=== PATIENT | male | born 1935 | race Caucasian/White ===

== ENCOUNTER 2017-11-26 22:03 | Inpatient (IN) ==
--- NOTE | 2017-11-27 03:51 | Internal Med History&Physical ---
Date of Encounter: 11/27/17 Time of Encounter: 03:49 Internal Medicine - H&P: HPI Chief complaint: CVA Admitted From: Hospital to Hospital Transfer Plans for Post Hospital Care: Transfer Long-Term Facility History of present illness: Mr. 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 due to CVA- cerebral infarction. Per medical records his last known well was 10 AM, and his found the patient on the couch with slurred speech and right upper extremity weakness. He was then taken to 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 He was not a candidate for TPA due to last known well was unknown and outside timeframe for administration. Upon my examination, the patient was alert and oriented x3 in no acute distress with right sided facial droop and slurred speech. No family at bedside. He stated that he was in the garden yesterday when he became lightheaded and his right leg became weak and he fell. He then crawled into his home. His found him on the couch with the right sided weakness and slurred speech. He denies fever, chills, recent illness, falls, dyspnea, chest pain, cough, nausea , vomiting, dysuria, melena. He has never had a stroke, anticoagulation, stents , PE/DVT. He is lifetime non-smoker, occasional alcohol, no drug use. He PCP is Dr. Devlin. He is a full code. At [place], urinalysis and blood cultures were taken. Lactic acid 2.15, troponin<0.03, WBC 7.4, hemoglobin 16, platelets 156, sodium 142, potassium 3.9, anion gap 9, glucose 184, creatinine 1.7, magnesium 1.9. EKG HR 63, normal sinus rhythm, left axis deviation, no ST or T wave changes. No indications of ischemia. Chest x-ray demonstrated no acute cardiopulmonary process. Past Med Surg Social Fam HX - Past Medical History Attestation: Yes The following information was validated with the patient. Source: patient Medical history: hyperlipidemia, hypertension Additional medical history: BPH Psychiatric history: no psych history - Past Surgical History Surgical History: herniorrhaphy - Social History Smoking Status: Never smoker Smokeless Tobacco Status: No Alcohol use: occasionally Drug use: none Internal Medicine - H&P: Meds Losartan/HCTZ [Hyzaar 50-12.5 Tablet] 25 - 100 mg PO DAILY 11/27/17 [History] Metoprolol XL (24 HR) Succ 100 mg PO HS 11/27/17 [History] Tamsulosin 0.4 mg PO HS 11/27/17 [History] amLODIPine 10 mg PO DAILY 11/27/17 [History] 3 Allergy/AdvReac Type Severity Reaction Status Date / Time No Known Drug Allergies Allergy See Verified 11/27/17 01:22 Comments All Systems PM: A 10-system review of systems was performed and is negative for pertinent findings except as documented above in the HPI. 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), no change in vision - Cardiovascular Cardiovascular ROS IM: lightheadedness, no chest pain, no diaphoresis, no palpitations, no syncope - Respiratory Respiratory: no cough, no dyspnea, no wheezing - Gastrointestinal Gastrointestinal: no abdominal pain, no hematochezia, no melena, no nausea, no vomiting - Genitourinary Genitourinary ROS male: no dysuria, no hematuria - Integumentary Integumentary IM: no erythema, no new lesions - Neurological Neurological ROS: abnormal gait, abnormal speech, dizziness, weakness (right upper and lower extremity), no headache(s), no loss of vision, no numbness, no paresthesias, no tingling - Hematologic/Lymphatic Hematologic/Lymphatic: no easy bleeding - Constitutional Vitals: Temp Pulse Resp BP Pulse Ox 98.1 F 59 17 168/97 97 11/27/17 00:13 11/27/17 00:13 11/27/17 00:13 11/27/17 00:13 11/27/17 00:13 General appearance: Present: A&O X 3, pleasant, no acute distress, answers questions appropriately - Head Head exam: Present: atraumatic, normocephalic - Eye Eye exam: Present: normal appearance, conjuntiva pink. Absent: nystagmus - Respiratory Respiratory exam: Present: CTAB. Absent: rales, rhonchi, wheezes - Cardiovascular Cardiovascular exam: Present: RRR, +S1, +S2 - GI/Abdominal GI/Abdominal exam: Present: normal bowel sounds, soft. Absent: distended, tenderness - Extremities Exam Extremities exam: Present: normal inspection. Absent: calf tenderness, pedal edema - Back Exam Back exam: Absent: rash noted - Neurological Exam Neurological exam: Present: facial droop (right side), speech deficit (yes) - Psychiatric Psychiatric exam: Present: normal affect, normal mood - Skin Skin exam: Present: dry, intact Internal Med - H&P Results - Labs CBC & Chem 7: 11/27/17 04:18 11/27/17 04:18 - Assessment and plan (1) CVA (cerebral vascular accident) Current Visit: Yes Status: Acute Assessment and plan: Most likely ischemic cerebral infarction, head CT negative for hemorrhage. Patient is a transfer from [facility]. Last known well 10am. Right upper and lower extremity weakness, right sided facial droop, and slurred speech. 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 -neuro exam: alert and oriented x3, right sided facial droop, slurred speech, 5/ 5 strength, sensation intact, no nystagmus -PMH: HTN, BPH, non smoker Plan -MRI head ordered -consult neurology in am -order PT/OT -lipid panel pending -NIHS -speech consult -NPO Qualifiers: Qualified Code(s): I63.9 - Cerebral infarction, unspecified (2) Elevated lactic acid level Current Visit: Yes Status: Acute Assessment and plan: elevated lactic acid secondary to fall most likely lactic acid 2.15 afebrile, WBC WNL -will repeat (3) Fall Current Visit: Yes Status: Acute Assessment and plan: Concern rhabdomyolysis. Patient reported fall without hitting head or losing consciousness. head CT demonstrated no acute intracranial abnormality -creatinine 1.7 -check renal function -check creatinine kinase -IVF -monitor I&O Qualifiers: Qualified Code(s): W19.XXXA - Unspecified fall, initial encounter (4) Hypertension Current Visit: Yes Status: Acute Assessment and plan: History of hypertension taking metoprolol, amlodipine, losartan/hydrocothiazide. -Holding blood pressure medications due to ischemic stroke Qualifiers: Hypertension type: essential hypertension Qualified Code(s): I10 - Essential (primary) hypertension (5) DVT prophylaxis Current Visit: Yes Status: Acute Assessment and plan: SCD - Time Spent With Patient Total time spent is greater than 50% in coordination of care (as documented) at patient's floor/unit and/or counseling patient:
[2017-11-27] MEDS ORDERED: Naloxone 0.4 MG/ML INJ IVP PRN (04:37)
[2017-11-27 04:38] LABS: Basophils % 0.3 %; Eosinophils # 0.1 K/mcL (0.0-0.6); Eosinophils % 0.5 %; Hematocrit 42.5 % (37.5-50.1); Immature Granulocytes % 0.4 % (0-4); Lymphocytes # 1.4 K/mcL (0.6-4.6); Lymphocytes % 13.8 %; Mean Corpuscular HGB Conc 35.3 g/dL (31.6-35.5); Mean Corpuscular Hemoglobin 31.3 pg (28.0-33.3); Mean Corpuscular Volume 88.7 fL (83.0-100.0); Mean Platelet Volume 9.9 fL (9.4-12.4); Monocytes # 0.7 K/mcL (0.0-1.3); Monocytes % 6.7 %; Neutrophils # 7.8 K/mcL (1.6-8.9); Platelet Count 139 K/mcL (140-400); Red Blood Count 4.79 M/mcL (4.19-5.50); Red Cell Distribution Width 12.5 % (11.5-14.5); Segmented Neutrophils % 78.3 %
[2017-11-27 04:46] LABS: Prothrombin Time 11.5 Seconds (9.4-12.1)
[2017-11-27 04:56] LABS: Chol/HDL Ratio 4.8 (0-4.9)
[2017-11-27 04:57] LABS: Calcium 9.1 mg/dL (8.6-10.3); Potassium 3.7 mEq/L (3.5-5.1)
[2017-11-27] MEDS ORDERED: 0.9 % Sodium Chloride 1,000 ML IVC SCH (05:45)
--- NOTE | 2017-11-27 09:30 | Event Note ---
<Raheel Lopez A - Last Filed: 11/27/17 15:46> Date of Encounter: 11/27/17 Time of Encounter: 10:55 Mr. Willett is an 82 y/o male with hx of HTN, HLD, and BPH, who was admitted today for CVA with right sided facial droop and weakness. Pt stated he fell around 11 AM yesterday out in the garden and crawled inside. His found him inside on the couch around 19:00 last night and noted slurred speech and facial droop. During the encounter with this provider, the pt was resting comfortable in bed. Stated his speech has improved from earlier and has no new complaints. Denies any headache, dizziness, lightheadedness, diplopia, numbness, tingling, weakness , chest pain, SOB, abdominal pain, nausea, vomiting, diarrhea, constipation, difficulty urinating, or painful urination. Physical exam: Head: normocephalic, atraumatic Eyes: pupils constricted, PERRL, unable to gaze laterally to the left, no visual field deficit. conjunctiva pink, sclera anicteric Neck: supple, trachea midline Lungs: CTA bilaterally. non-labored breathing. no wheezes, rales, or rhonchi noted Heart: RRR, +S1, +S2. no murmurs, clicks, or rubs noted GI: abdomen soft, non-tender, non-distended. normoactive bowel sounds Extremities: warm, strength 5/5 in all 4 extremities, no pedal edema. no cyanosis Neuro: A&Ox3. slight slurring of speech. no pronator drift. no facial drooping. DTRs 2/4 in all extremities. sensation intact Skin: warm, dry, intact A/P: CVA -CT revealed no abnormality -MRI revealed acute left esme infarct -Start 81mg ASA, 40mg atorvastatin, and plavix 75mg qd -Echocardiogram -US carotids -PT/OT eval -Speech therapy eval HTN -high of -continue home meds -continue to monitor closely HLD -atorvastatin 40mg qd as above BPH -continue home Flomax <Mega Arroyo - Last Filed: 11/27/17 17:19> Date of Encounter: 11/27/17 I examined this patient and my medical decision-making was reviewed with the Resident Physician Dr. Lopez. I agree with the documented findings, disposition and treatment plan as described except to the extent set forth below. Mr. Willett is a 82 year old male with a history of hypertension, hyperlipedemia , and partial right eye blindness. Presented to ED at [facility] yesterday. He noted right side lower extremity weakness and falling beginning about 1000 am yesterday, while working outside. He did c/o numbness and weakness Rt side of body which resolved today. Gen: A, A< O x3 Chest: CTA Heart: S1S2+ RRR Neuro : No focal deficit A/P 1. Acute CVA- Left pontine infract ASA + Plavix Statin PT / OT / Speech eval 2 D echo and Carotid doppler - P
[2017-11-27] MEDS: Aspirin 81 MG TAB.CHEW PO SCH (09:53)
--- NOTE | 2017-11-27 10:24 | Neurology - Consult Note ---
<Chris Arizmendi R - Last Filed: 11/27/17 10:57> Date of Encounter: 11/27/17 Time of Encounter: 10:17 Assessment and Plan (1) CVA (cerebral vascular accident) Current Visit: Yes Status: Acute History and exam consistent with CVA. Head CT did not show acute abnormality. Head MRI reveals acute left esme infarct. Will need echo, and carotid US for further evaluation. Start Plavix 75 mg p.o. daily and continue statin. May discontinue aspirin at discharge. Recommend evaluation by physical therapy. History of Present Illness Chief complaint: Right side weakness, slurred speak HPI: Mr. Willett is a 82 year old male with a history of hypertension, hyperlipedemia , and partial right eye blindness. Presented to ED at [facility] yesterday. He noted right side lower extremity weakness and falling beginning about 1000 am yesterday, while working outside. Patient was able to crawl inside, where his found him. She noted facial droop, and slurred speech. Stroke neurologist was consulted but patient was outside the tPA window. Head CT negative for acute abnormality. Initial exam noted patient to be alert and oriented, right arm hand numbness, and slurred speech. At baseline patient is able to care for self, ambulate without assistance, and perform household tasks. 1 month ago patient experienced a similar episode of slurred speech, which self resolved after 3 hours, did not seek medical care. Past Med Surg Social Fam HX - Past Medical History Medical history: hyperlipidemia, hypertension Additional medical history: BPH Psychiatric history: no psych history - Past Surgical History Surgical History: herniorrhaphy - Social History Smoking Status: Never smoker Smokeless Tobacco Status: No Alcohol use: occasionally Drug use: none Medications and Allergies Amlodipine Besylate 10 mg PO DAILY 11/27/17 [History] Losartan/HCTZ [Hyzaar 50-12.5 Tablet] 25 - 100 mg PO DAILY 11/27/17 [History] Metoprolol Succinate [Toprol Xl] 100 mg PO DAILY 11/27/17 [History] Tamsulosin [Flomax] 0.4 mg PO DAILY 11/27/17 [History] 3 Allergy/AdvReac Type Severity Reaction Status Date / Time No Known Drug Allergies Allergy See Verified 11/27/17 01:22 Comments All Systems: The remainder of the systems were reviewed and are negative Review of Systems: Right lower extremity weakness, resolved right hand numbness. Physical Examination - Vital Signs Vital Signs: Initial Vital Signs Temp Pulse Resp BP 98.1 F 59 17 168/97 11/27/17 00:11 11/27/17 00:11 11/27/17 00:11 11/27/17 00:11 - Exam Exam: Mental status: Patient is awake in bed, alert and oriented to person, place, and time. Speech is noticeably slurred, but understandable. Good fund of knowledge for recent and remote events. Cranial Nerves: Pupils are equal, round, and reactive to light. Right visual field deficit, with markedly diminished central and peripheral vision. EOM intact. Diminished sensory CN V. Right facial droop, CN VII. Bilateral hearing loss, VIII. symmetrically elevated palate and shoulder shrug IX,X, XI. Left deviated tongue XII. Upper extremity motor: Normal bulk and tone. 4/5 right side compared to 5/5 left strength in deltoid, biceps, triceps, finger extensors and abductors. Lower extremity motor: Normal bulk and tone. 4/5 right side compared to 5/5 left side strength in hip flexors, quadriceps, hamstring, plantar flexors and extensors Sensory: Sensation to touch and pain intact. Reflexes: down going plantar reflex, 2+ biceps, 2+ triceps, 2+ patellar, 2+ achilles Cerebellar: able to perform finger to nose exam with mild bilateral dysmetria, right worse than left. performed rapid alternating movements well. Results - Laboratory Findings CBC and BMP: 11/27/17 04:18 11/27/17 04:18 Abnormal lab findings: Abnormal lab results Plt Count 139 K/mcL (140-400) L 11/27/17 04:18 Chloride 108 mEq/L (98-107) H 11/27/17 04:18 BUN 26 mg/dL (8-23) H 11/27/17 04:18 Creatinine 1.48 mg/dL (0.70-1.30) H 11/27/17 04:18 Est GFR ( Amer) 55 (> 60) L 11/27/17 04:18 Est GFR (Non-Af Amer) 46 (> 60) L 11/27/17 04:18 Glucose 146 mg/dL (70-105) H 11/27/17 04:18 Triglycerides 170 mg/dL (< 150) H 11/27/17 04:18 LDL Cholesterol, Calc 106 mg/dL (0-99) H 11/27/17 04:18 VLDL Cholesterol, Calc 34 mg/dL (< 31) H 11/27/17 04:18 HDL Cholesterol 37 mg/dL (40-59) L 11/27/17 04:18 Consult Discharge Plan - Plan Referrals: NONE,PCP [Primary Care Provider] - <Crow Quintana I - Last Filed: 11/27/17 11:14> Date of Encounter: 11/27/17 Assessment and Plan (1) CVA (cerebral vascular accident) Current Visit: Yes Status: Acute Pt was seen and examined, my medical decision was reviewed with the Resident Physician, I agree with the documented findings, disposition and treatment plas as described except to the extent set forth below This is an 82 years old male who was been admitted with this slurred speech and some weakness predominantly in the right lower extremities. Baseline seem like he did have some slurred speech but seems to be worse than his baseline. He also has a history of decreased vision in his both eyes more on the right than on the left. On examination he is alert awake and oriented 3 able to follow simple commands he did have some slurred speech but naming and repetition seems to be intact. He did a decreased vision in his right eye and also decrease in the left but not much able to see from the right. Motor examination he is 4+ in both upper extremities right lower extremity he is 4 as compared to the left reflexes are hypoactive throughout downgoing toes bilaterally. CT scan of the head is negative for any acute infarct. He just had an MRI of the brain which shows a right pontine acute infarct. Impression: Acute pontine infarct Plan: Following's are my recommendations. For secondary stroke prevention patient should continue daily antiplatelet medication and vascular risk factor modification. Order the following test, *MRI of the brain without contrast. already completed, *Antiplatelet medication, aspirin 81 mg daily. with PLAVIX 75 mg daily *Consult physical therapy/ rehabilitation * To reduce the risk of future ischemic stroke patient need continued vascular risk modification, following's are the recommended guidelines LDL goal less than 70 MG per deciliter sugar management Blood pressure control should achieve less than 130/80 mmHg BP management should aim to achieve long-term control in a reasonable amount of time. weight management goal for BMI is 18.5 -24.9 Kg/m2 Alcohol : No more than 2 drinks per day for men Patient to continue to follow-up with his primary care physician for continued outpatient risk factor management and modification. PT eval for gait and balance Crow Quintana MD Qualifiers: CVA mechanism: unspecified Qualified Code(s): I63.9 - Cerebral infarction, unspecified History of Present Illness HPI: Mr. Willett is a 82 year old male All Systems: The remainder of the systems were reviewed and are negative Physical Examination - Vital Signs Vital Signs: Initial Vital Signs Temp Pulse Resp BP 98.1 F 59 17 168/97 11/27/17 00:11 11/27/17 00:11 11/27/17 00:11 11/27/17 00:11 Results - Laboratory Findings CBC and BMP: 11/27/17 04:18 11/27/17 04:18 Abnormal lab findings: Abnormal lab results Plt Count 139 K/mcL (140-400) L 11/27/17 04:18 Chloride 108 mEq/L (98-107) H 11/27/17 04:18 BUN 26 mg/dL (8-23) H 11/27/17 04:18 Creatinine 1.48 mg/dL (0.70-1.30) H 11/27/17 04:18 Est GFR ( Amer) 55 (> 60) L 11/27/17 04:18 Est GFR (Non-Af Amer) 46 (> 60) L 11/27/17 04:18 Glucose 146 mg/dL (70-105) H 11/27/17 04:18 Triglycerides 170 mg/dL (< 150) H 11/27/17 04:18 LDL Cholesterol, Calc 106 mg/dL (0-99) H 11/27/17 04:18 VLDL Cholesterol, Calc 34 mg/dL (< 31) H 11/27/17 04:18 HDL Cholesterol 37 mg/dL (40-59) L 11/27/17 04:18
[2017-11-28 05:08] LABS: Calcium 8.6 mg/dL (8.6-10.3); Potassium 3.9 mEq/L (3.5-5.1)
[2017-11-28] MEDS: Aspirin 81 MG TAB.CHEW PO SCH (11:28)
--- NOTE | 2017-11-28 14:32 | Internal Med Progress Note ---
<Mojgan Mccarthy - Last Filed: 11/28/17 14:29> Date of Encounter: 11/28/17 Time of Encounter: 02:30 - Assessment and plan (1) CVA (cerebral vascular accident) Current Visit: Yes Status: Acute Assessment and plan: 11/27/17: Most likely ischemic cerebral infarction, head CT negative for hemorrhage. Patient is a transfer from [facility]. Last known well 10am o 05/04. Right upper and lower extremity weakness, right sided facial droop, and slurred speech at presentation. 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 -neuro exam: alert and oriented x3, right sided facial droop, slurred speech, 5/ 5 strength, sensation intact, no nystagmus -PMH: HTN, BPH, non smoker 11/28/17: no acute distress, awake and alert with congruent thought content. 11/28/17 Plan -MRI: reveals acute left esme infarct -neurology consulted -neurology recommends controlling hypertension at a reasonable time -Started 50 mg succinate -PT/OT consulted -lipid panel pending -speech consult -Carotid ultrasound: Bilateral carotid nonstenotic plaque -Echo: preserved EF, normal chamber size. No aortic regurgitation, no mitral regurgitation, trace tricuspid regurgitation. -Discharge to F Qualifiers: CVA mechanism: unspecified Qualified Code(s): I63.9 - Cerebral infarction, unspecified (2) Hypertension Current Visit: Yes Status: Acute Assessment and plan: History of hypertension at home takes metoprolol, amlodipine, losartan/ hydrocothiazide. -Held blood pressure medications at admission due to ischemic stroke -Started 50 mg metoprolol succinate as the blood pressure was 177/102 this morning Qualifiers: Hypertension type: essential hypertension Qualified Code(s): I10 - Essential (primary) hypertension (3) Fall Current Visit: Yes Status: Acute Assessment and plan: Concern rhabdomyolysis. Patient reported fall without hitting head or losing consciousness. head CT demonstrated no acute infarct of left esme. MRI shows acute -creatinine 1.7 at admission, today 1.51. -Creatinine kinase 76 at admission -IVF at admission -monitor I&O, eating and drinking with good output Qualifiers: Qualified Code(s): W19.XXXA - Unspecified fall, initial encounter (4) JO (acute kidney injury) Current Visit: Yes Status: Acute Assessment and plan: Suspected to be prenal due to dehydration. Unknown if he has history of CKD due to long standing hypertension. His creatinine is 1.51 this morning. Continue oral hydration. Avoid nephrotoxins (5) DVT prophylaxis Current Visit: Yes Status: Acute Assessment and plan: SCDs (6) Hyperlipidemia Current Visit: Yes Status: Chronic Assessment and plan: History of hyperlipidemia. His LDL was 106 and triglyceride was 170 with low HDL -On lipitor -Continue home medications -Should be on a low fat and low salt diet Qualifiers: Hyperlipidemia type: unspecified Qualified Code(s): E78.5 - Hyperlipidemia , unspecified - Time Spent With Patient Total time spent is greater than 50% in coordination of care (as documented) at patient's floor/unit and/or counseling patient: - Subjective Interval history: Mr. Willett was seen at bedside this morning. He was transferred from [facility] yesterday due to a CVA. Because of the unknown time of the last known well he was not a TPA candidate. He is comfortable in bed and has no complaints this morning. He is awake, alert and oriented x3. He has fluent speech with congruent thought process. He is using the bathroom in his room with ease. He states his gait is intact and denies any fever, chills, paresthesia, headache, blurry vision, nausea, vomiting, chest pain or shortness of breath. - Constitutional Vitals: Temp Pulse Resp BP Pulse Ox 97.5 F L 92 20 177/102 94 11/28/17 11:45 11/28/17 13:37 11/28/17 13:37 11/28/17 13:37 11/28/17 11:45 General appearance: Present: A&O X 3, pleasant, no acute distress, answers questions appropriately - Head Head exam: Present: atraumatic, normocephalic - Eye Eye exam: Present: EOMI, normal appearance, sclera anicteric - ENT ENT exam: Present: mucous membranes moist - Neck Neck exam general surgery: Present: full ROM, trachea midline - Respiratory Respiratory exam: Present: CTAB. Absent: rales, stridor, wheezes - Cardiovascular Cardiovascular exam: Present: RRR. Absent: clicks, gallop, JVD - GI/Abdominal GI/Abdominal exam: Present: normal bowel sounds, soft. Absent: distended, firm , guarding, rigid - Extremities Exam Extremities exam: Present: full ROM, warm. Absent: calf tenderness, pedal edema , tenderness - Neurological Exam Neurological exam: Present: alert, altered, oriented X3. Absent: no focal deficits, speech deficit - Psychiatric Psychiatric exam: Present: normal affect, normal mood. Absent: anxious - Skin Skin exam: Present: dry, intact, warm. Absent: rash Internal Medicine: Result - Labs CBC & Chem 7: 11/27/17 04:18 11/28/17 04:24 Labs: BMP 11/28/17 04:24 Sodium 138 Potassium 3.9 Chloride 108 H Carbon Dioxide 23 BUN 30 H Creatinine 1.51 H Glucose 152 H Calcium 8.6 - ABG Interpretation ABG results: PT/INR, D-dimer PT 11.5 Seconds (9.4-12.1) 11/27/17 04:18 - Impressions Impressions Echocardiogram 11/27/17 11:48 Impressions: LVEF 65%. Normal LV chamber size, wall thickness and function. Mild left ventricular diastolic dysfunction. Normal right ventricular structure and function. No evidence of a PFO with agitated saline contrast. No evidence of pulmonary hypertension. No significant valvular dysfunction. Left Ventricular Wall Motion: Rest Echo Findings All wall segments showed normal motion. Findings: Study Quality * Technically adequate exam. ECG Findings * Normal sinus rhythm. Left Ventricle * LVEF 65%. * Normal LV chamber size, wall thickness and function. * Mild left ventricular diastolic dysfunction. Right Ventricle * Normal right ventricular structure and function. Left Atrium * Normal left atrial size. Right Atrium * Normal right atrial size. Interatrial Septum * No evidence of a PFO with agitated saline contrast. Aortic Valve * Trileaflet aortic valve with normal function. * No aortic regurgitation. * No aortic stenosis. Mitral Valve * Normal mitral valve structure and function. * No mitral regurgitation. * No mitral stenosis. Tricuspid Valve * Normal tricuspid valve structure and function. * Trace tricuspid regurgitation. * No evidence of pulmonary hypertension. Pulmonic Valve * Normal pulmonic valve structure and function. * No pulmonic regurgitation. Aorta * Normally sized aortic root. Pericardium * The pericardium appears normal. IVC * Normal IVC dimensions and inspiratory collapse. Pulmonary Artery * Normal visualized portions of the main pulmonary artery. - VTE Documentation of Mechanical Device: Intermittent pneumatic compression device Consult Discharge Plan - Plan Referrals: [place],Luis Antonio E, MD [Non-Partnered Physician] - (office is closed so please call and make a follow up appointment thursday ) <Mega Arroyo - Last Filed: 11/28/17 15:52> Date of Encounter: 11/28/17 - Assessment and plan (1) CVA (cerebral vascular accident) Current Visit: Yes Status: Acute Qualifiers: CVA mechanism: unspecified Qualified Code(s): I63.9 - Cerebral infarction, unspecified (2) Hypertension Current Visit: Yes Status: Acute Qualifiers: Hypertension type: essential hypertension Qualified Code(s): I10 - Essential (primary) hypertension (3) DVT prophylaxis Current Visit: Yes Status: Acute (4) Fall Current Visit: Yes Status: Acute Qualifiers: Qualified Code(s): W19.XXXA - Unspecified fall, initial encounter (5) JO (acute kidney injury) Current Visit: Yes Status: Acute (6) Hyperlipidemia Current Visit: Yes Status: Chronic Qualifiers: Hyperlipidemia type: unspecified Qualified Code(s): E78.5 - Hyperlipidemia , unspecified - Time Spent With Patient Total time spent is greater than 50% in coordination of care (as documented) at patient's floor/unit and/or counseling patient: - Constitutional Vitals: Temp Pulse Resp BP Pulse Ox 97.7 F 89 20 169/103 90 11/28/17 15:18 11/28/17 15:18 11/28/17 13:37 11/28/17 15:18 11/28/17 15:18 Internal Medicine: Result - Labs CBC & Chem 7: 11/27/17 04:18 11/28/17 04:24 Labs: BMP 11/28/17 04:24 Sodium 138 Potassium 3.9 Chloride 108 H Carbon Dioxide 23 BUN 30 H Creatinine 1.51 H Glucose 152 H Calcium 8.6 - ABG Interpretation ABG results: PT/INR, D-dimer PT 11.5 Seconds (9.4-12.1) 11/27/17 04:18 - Impressions Impressions Echocardiogram 11/27/17 11:48 Impressions: LVEF 65%. Normal LV chamber size, wall thickness and function. Mild left ventricular diastolic dysfunction. Normal right ventricular structure and function. No evidence of a PFO with agitated saline contrast. No evidence of pulmonary hypertension. No significant valvular dysfunction. Left Ventricular Wall Motion: Rest Echo Findings All wall segments showed normal motion. Findings: Study Quality * Technically adequate exam. ECG Findings * Normal sinus rhythm. Left Ventricle * LVEF 65%. * Normal LV chamber size, wall thickness and function. * Mild left ventricular diastolic dysfunction. Right Ventricle * Normal right ventricular structure and function. Left Atrium * Normal left atrial size. Right Atrium * Normal right atrial size. Interatrial Septum * No evidence of a PFO with agitated saline contrast. Aortic Valve * Trileaflet aortic valve with normal function. * No aortic regurgitation. * No aortic stenosis. Mitral Valve * Normal mitral valve structure and function. * No mitral regurgitation. * No mitral stenosis. Tricuspid Valve * Normal tricuspid valve structure and function. * Trace tricuspid regurgitation. * No evidence of pulmonary hypertension. Pulmonic Valve * Normal pulmonic valve structure and function. * No pulmonic regurgitation. Aorta * Normally sized aortic root. Pericardium * The pericardium appears normal. IVC * Normal IVC dimensions and inspiratory collapse. Pulmonary Artery * Normal visualized portions of the main pulmonary artery. - Attending Attestation I examined this patient and my medical decision-making was reviewed with the Resident Physician Dr. Ulrich. I agree with the documented findings, disposition and treatment plan as described except to the extent set forth below. Mr. Willett is a 82 year old male with a history of hypertension, hyperlipedemia , and partial right eye blindness. Presented to ED at [facility] yesterday. He noted right side lower extremity weakness and falling beginning about 1000 am yesterday, while working outside. He did c/o numbness and weakness Rt side of body which resolved today. No events over night Gen: A, A O x3 Chest: CTA Heart: S1S2+ RRR Neuro : No focal deficit A/P 1. Acute CVA- Left pontine infract ASA + Plavix Statin PT / OT / Speech eval 2. uncontrolled HTN BP fairly elevated Resumed home meds goal for BP to keep @ 140/90 cont close monitoring Hydralazine PRN
--- NOTE | 2017-11-28 15:21 | Neurology Progress Note ---
Date of Encounter: 11/28/17 Time of Encounter: 15:19 Assessment and Plan (1) Brainstem infarct, acute Current Visit: Yes Status: Acute Patient has in fact experienced an acute infarction in the left esme he does have stroke risk factors which include hypertension and hyperlipidemia as well as age. His blood pressure has been significantly elevated throughout much of the admission. At this juncture I think it is safe to go ahead and normalize his blood pressure and maintain him on antiplatelet therapy as well as statins and antihypertensives. His deficits appear to be stable at this juncture he does not appear to need additional therapeutics after discharge. His echocardiogram and carotid Doppler studies were negative. I will reevaluate him at your request. Subjective Interval history: Chart was reviewed, patient was seen and examined independently. Dr. Quintana's consult from yesterday was reviewed as well. Mr. broderick is a very pleasant 82- year-old gentleman who was seen for neurologic follow-up today secondary to an acute right pontine infarct. He is currently awake and alert sitting up at bedside with multiple family members present. And he is in no acute distress. I did review the MRI scan of the brain personally which does reveal an acute infarct in the right esme. He does have stroke risk factors including uncontrolled hypertension. As his BP has been running fairly high since admission currently is 170/110. He is also found to have hyperlipidemia. Echocardiogram and carotid duplex Doppler studies were negative. Objective - Constitutional Vitals: Temp Pulse Resp BP Pulse Ox 97.5 F L 92 20 177/102 94 11/28/17 11:45 11/28/17 13:37 11/28/17 13:37 11/28/17 13:37 11/28/17 11:45 - Neurological Exam Sensorimotor examination: Present: intact Motor examination - right side: 5/5: deltoids, biceps, triceps, exhauster engineer, hip flexors, tibialis Anterior, quadriceps, toe extension (EHL), plantarflexion Motor examination - left side: 5/5: deltoids, biceps, triceps, hip flexors, exhauster engineer , quadriceps, tibialis Anterior, toe extension (EHL), plantarflexion Sensation intact: Present: intact Reflexes: Biceps: 1+, Triceps: 1+, Brachioradialis: 1+, Patella: 1+, Achilles: 1 + Mental Status Examination: Present: awake, alert, oriented to person, oriented to place, oriented to time, follows commands appropriately, answers questions appropriately, no agnosia, no aphasia, no aproxia Cranial nerve examination: Present: PERRL, EOMI, corneal reflexes brisk symmetrically, sensory to face intact, mastication intact, no dysarthria. Absent: visual caballero intact (Right central field deficit present.), no facial asymmetry is present (This is a very slight right facial droop present.) Cerebellar examination: Present: no dysmetria - VTE Documentation of Mechanical Device: Intermittent pneumatic compression device Results - Laboratory Findings CBC and BMP: 11/27/17 04:18 11/28/17 04:24 Abnormal lab findings: Abnormal lab results Plt Count 139 K/mcL (140-400) L 11/27/17 04:18 Chloride 108 mEq/L (98-107) H 11/28/17 04:24 BUN 30 mg/dL (8-23) H 11/28/17 04:24 Creatinine 1.51 mg/dL (0.70-1.30) H 11/28/17 04:24 Est GFR ( Amer) 54 (> 60) L 11/28/17 04:24 Est GFR (Non-Af Amer) 44 (> 60) L 11/28/17 04:24 Glucose 152 mg/dL (70-105) H 11/28/17 04:24 POC Glucose 128 mg/dL (70-99) H 11/27/17 23:03 Triglycerides 170 mg/dL (< 150) H 11/27/17 04:18 LDL Cholesterol, Calc 106 mg/dL (0-99) H 11/27/17 04:18 VLDL Cholesterol, Calc 34 mg/dL (< 31) H 11/27/17 04:18 HDL Cholesterol 37 mg/dL (40-59) L 11/27/17 04:18 Consult Discharge Plan - Plan Referrals: Luis Antonio Devlin MD [Non-Partnered Physician] - (office is closed so please call and make a follow up appointment thursday )
[2017-11-28] MEDS: Metoprolol XL (24 HR) Succ 50 MG TAB.ER.24H PO SCH (18:32)
[2017-11-29 04:52] LABS: Basophils % 0.4 %; Eosinophils # 0.1 K/mcL (0.0-0.6); Eosinophils % 1.3 %; Hematocrit 44.1 % (37.5-50.1); Hemoglobin 15.2 g/dL (12.9-16.9); Immature Granulocytes % 0.5 % (0-4); Lymphocytes # 1.6 K/mcL (0.6-4.6); Mean Corpuscular HGB Conc 34.5 g/dL (31.6-35.5); Mean Corpuscular Hemoglobin 31.5 pg (28.0-33.3); Mean Corpuscular Volume 91.5 fL (83.0-100.0); Mean Platelet Volume 10.2 fL (9.4-12.4); Monocytes # 0.7 K/mcL (0.0-1.3); Monocytes % 8.8 %; Neutrophils # 5.9 K/mcL (1.6-8.9); Platelet Count 143 K/mcL (140-400); Red Blood Count 4.82 M/mcL (4.19-5.50); Red Cell Distribution Width 12.7 % (11.5-14.5)
[2017-11-29 05:14] LABS: Calcium 8.7 mg/dL (8.6-10.3); Potassium 3.7 mEq/L (3.5-5.1)
[2017-11-29] MEDS: Aspirin 81 MG TAB.CHEW PO SCH (08:01)
[2017-11-29] MEDS: Metoprolol XL (24 HR) Succ 50 MG TAB.ER.24H PO SCH (08:01)
[2017-11-29] MEDS: Losartan/HCTZ 50-12.5 TABLET PO SCH (08:01)
[2017-11-29] MEDS ORDERED: Metoprolol XL (24 HR) Succ 50 MG TAB.ER.24H PO SCH (09:00)
--- NOTE | 2017-11-29 10:15 | Internal Med Progress Note ---
<Fabio,Mojgan - Last Filed: 11/29/17 11:08> Date of Encounter: 11/29/17 Time of Encounter: 10:15 - Assessment and plan (1) CVA (cerebral vascular accident) Current Visit: Yes Status: Acute Assessment and plan: 11/27/17: Most likely ischemic cerebral infarction, head CT negative for hemorrhage. Patient is a transfer from [facility]. Last known well 10am o 05/04. Right upper and lower extremity weakness, right sided facial droop, and slurred speech at presentation. 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 -neuro exam: alert and oriented x3, right sided facial droop, slurred speech, 5/ 5 strength, sensation intact, no nystagmus -PMH: HTN, BPH, non smoker 11/28/17: no acute distress, awake and alert with congruent thought content. 11/28/17 Plan -MRI: reveals acute left esme infarct -neurology consulted -neurology recommends controlling hypertension at a reasonable time -Started 50 mg succinate -PT/OT consulted -lipid panel pending -speech consult -Carotid ultrasound: Bilateral carotid nonstenotic plaque -Echo: preserved EF, normal chamber size. No aortic regurgitation, no mitral regurgitation, trace tricuspid regurgitation. -Discharge to [facility] 11/29: Same as above -Controlling his hypertenstion, on 50 mg metorolol succinate and home dose of hyzaar -No acute changes -No neurological deficits noted -No difficulty with respiration or swallowing -On an advanced soft diet -Had urinary retention last night, relieved 700 cc after straight catheter -Not on any anticholinergic, continue avoiding those -Denies any dysuria or hematuria -Likely secondary to the CVA of esme as it controls bladder control -Urged to continue drinking fluids -Continue home flomax -May require pelvic floor exercises Qualifiers: CVA mechanism: unspecified Qualified Code(s): I63.9 - Cerebral infarction, unspecified (2) Hypertension Current Visit: Yes Status: Acute Assessment and plan: History of hypertension at home takes metoprolol, amlodipine, losartan/ hydrocothiazide. -Held blood pressure medications at admission due to ischemic stroke -Started 50 mg metoprolol succinate as the blood pressure was 177/102 this morning 11/29/17: Continues to have high blood pressure -Trying to find a nice balance to preserve brain perfusion by not decreasing blood pressure too quickly after a CVA -This morning blood pressure was 181/84 -Started home dose of hyzaar, 50-12.5 mg today and 50 mg metoprolol succinate Qualifiers: Hypertension type: essential hypertension Qualified Code(s): I10 - Essential (primary) hypertension (3) Fall Current Visit: Yes Status: Acute Assessment and plan: Concern rhabdomyolysis. Patient reported fall without hitting head or losing consciousness. head CT demonstrated no acute infarct of left esme. MRI shows acute -creatinine 1.7 at admission, today 1.54. -Creatinine kinase 76 at admission -IVF at admission -monitor I&O, eating and drinking with good output 11/29: -No difficulty with respiration or swallowing -Balance intact -No difficultly with gait Qualifiers: Encounter type: subsequent encounter Qualified Code(s): W19.XXXD - Unspecified fall, subsequent encounter (4) JO (acute kidney injury) Current Visit: Yes Status: Acute Assessment and plan: Suspected to be prenal due to dehydration. Unknown if he has history of CKD due to long standing hypertension. His creatinine is 1.51 this morning. Continue oral hydration. Avoid nephrotoxins 11/29 -same as above -continue oral hydration -continue bladder scan for I/O (5) Hyperlipidemia Current Visit: Yes Status: Chronic Assessment and plan: History of hyperlipidemia. His LDL was 106 and triglyceride was 170 with low HDL -On lipitor -Continue home medications -Should be on a low fat and low salt diet 11/29: Same as above Qualifiers: Hyperlipidemia type: unspecified Qualified Code(s): E78.5 - Hyperlipidemia , unspecified (6) DVT prophylaxis Current Visit: Yes Status: Acute Assessment and plan: SCDs (7) Urinary retention Current Visit: Yes Status: Acute Assessment and plan: 11/29: Urinary hesitance, likely secondary to CVA of esme -Bladder scan showed 700 ml of urine -Required straight cath, relieved 700 ml of urine -Continue oral hydration -Continue bladder scan -Continue home flomax - Time Spent With Patient Total time spent is greater than 50% in coordination of care (as documented) at patient's floor/unit and/or counseling patient: - Subjective Interval history: Mr. Willett was seen at bedside this morning. He was transferred from [facility] two days ago due to a CVA. Because of the unknown time of the last known well he was not a TPA candidate. This morning he is comfortable in bed. Last night he had an episode of urinary retention, bladder scan showed 700 cc and he required straight catherization with 700 cc output. His home dose of flomax was restarted yesterday. This morning he denies urinary urgency or hesitance but has not urinated. He is advised to intake oral fluids and inform the nurse if he continues to have urinary hesitance. He is awake, alert and oriented x3. He has fluent speech with congruent thought process. He is walking around the room with ease. He denies any fever, chills, paresthesia, headache, blurry vision, nausea, vomiting, chest pain or shortness of breath. - Constitutional Vitals: Temp Pulse Resp BP Pulse Ox 98.0 F 66 14 181/84 94 11/29/17 06:31 11/29/17 06:31 11/29/17 03:46 11/29/17 06:31 11/29/17 08:00 General appearance: Present: A&O X 3, pleasant, no acute distress, answers questions appropriately - Head Head exam: Present: atraumatic, normocephalic - Eye Eye exam: Present: EOMI, sclera anicteric. Absent: nystagmus - ENT ENT exam: Present: mucous membranes moist - Neck Neck exam general surgery: Present: normal inspection, trachea midline - Respiratory Respiratory exam: Present: CTAB. Absent: rales, stridor, wheezes - Cardiovascular Cardiovascular exam: Present: RRR. Absent: clicks, gallop, JVD - GI/Abdominal GI/Abdominal exam: Present: normal bowel sounds, soft. Absent: firm, guarding, rigid - Extremities Exam Extremities exam: Present: full ROM, warm. Absent: pedal edema, tenderness - Neurological Exam Neurological exam: Present: alert, altered, oriented X3. Absent: speech deficit Internal Medicine: Result - Labs CBC & Chem 7: 11/29/17 03:55 11/29/17 03:55 Labs: Short CBC 11/29/17 Range/Units 03:55 WBC 8.4 (4.3-11.1) K/mcL Hgb 15.2 (12.9-16.9) g/dL Hct 44.1 (37.5-50.1) % Plt Count 143 (140-400) K/mcL Neutrophils # 5.9 (1.6-8.9) K/mcL BMP 11/29/17 03:55 Sodium 141 Potassium 3.7 Chloride 110 H Carbon Dioxide 20 L BUN 32 H Creatinine 1.54 H Glucose 137 H Calcium 8.7 - ABG Interpretation ABG results: PT/INR, D-dimer PT 11.5 Seconds (9.4-12.1) 11/27/17 04:18 - Impressions Impressions Echocardiogram 11/27/17 11:48 Impressions: LVEF 65%. Normal LV chamber size, wall thickness and function. Mild left ventricular diastolic dysfunction. Normal right ventricular structure and function. No evidence of a PFO with agitated saline contrast. No evidence of pulmonary hypertension. No significant valvular dysfunction. Left Ventricular Wall Motion: Rest Echo Findings All wall segments showed normal motion. Findings: Study Quality * Technically adequate exam. ECG Findings * Normal sinus rhythm. Left Ventricle * LVEF 65%. * Normal LV chamber size, wall thickness and function. * Mild left ventricular diastolic dysfunction. Right Ventricle * Normal right ventricular structure and function. Left Atrium * Normal left atrial size. Right Atrium * Normal right atrial size. Interatrial Septum * No evidence of a PFO with agitated saline contrast. Aortic Valve * Trileaflet aortic valve with normal function. * No aortic regurgitation. * No aortic stenosis. Mitral Valve * Normal mitral valve structure and function. * No mitral regurgitation. * No mitral stenosis. Tricuspid Valve * Normal tricuspid valve structure and function. * Trace tricuspid regurgitation. * No evidence of pulmonary hypertension. Pulmonic Valve * Normal pulmonic valve structure and function. * No pulmonic regurgitation. Aorta * Normally sized aortic root. Pericardium * The pericardium appears normal. IVC * Normal IVC dimensions and inspiratory collapse. Pulmonary Artery * Normal visualized portions of the main pulmonary artery. - VTE Documentation of Mechanical Device: Intermittent pneumatic compression device Consult Discharge Plan - Plan Referrals: Luis Antonio Devlin MD [Non-Partnered Physician] - (office is closed so please call and make a follow up appointment thursday ) <Mega Arroyo - Last Filed: 11/29/17 15:04> Date of Encounter: 11/29/17 - Assessment and plan (1) CVA (cerebral vascular accident) Current Visit: Yes Status: Acute Qualifiers: CVA mechanism: unspecified Qualified Code(s): I63.9 - Cerebral infarction, unspecified (2) Hypertension Current Visit: Yes Status: Acute Qualifiers: Hypertension type: essential hypertension Qualified Code(s): I10 - Essential (primary) hypertension (3) DVT prophylaxis Current Visit: Yes Status: Acute (4) Fall Current Visit: Yes Status: Acute Qualifiers: Encounter type: subsequent encounter Qualified Code(s): W19.XXXD - Unspecified fall, subsequent encounter (5) JO (acute kidney injury) Current Visit: Yes Status: Acute (6) Hyperlipidemia Current Visit: Yes Status: Chronic Qualifiers: Hyperlipidemia type: unspecified Qualified Code(s): E78.5 - Hyperlipidemia , unspecified (7) Urinary retention Current Visit: Yes Status: Acute - Time Spent With Patient Total time spent is greater than 50% in coordination of care (as documented) at patient's floor/unit and/or counseling patient: - Constitutional Vitals: Temp Pulse Resp BP Pulse Ox 98.0 F 64 14 149/88 93 11/29/17 06:31 11/29/17 11:06 11/29/17 03:46 11/29/17 11:06 11/29/17 11:06 Internal Medicine: Result - Labs CBC & Chem 7: 11/29/17 03:55 11/29/17 03:55 Labs: Short CBC 11/29/17 Range/Units 03:55 WBC 8.4 (4.3-11.1) K/mcL Hgb 15.2 (12.9-16.9) g/dL Hct 44.1 (37.5-50.1) % Plt Count 143 (140-400) K/mcL Neutrophils # 5.9 (1.6-8.9) K/mcL BMP 11/29/17 03:55 Sodium 141 Potassium 3.7 Chloride 110 H Carbon Dioxide 20 L BUN 32 H Creatinine 1.54 H Glucose 137 H Calcium 8.7 - ABG Interpretation ABG results: PT/INR, D-dimer PT 11.5 Seconds (9.4-12.1) 11/27/17 04:18 - Attending Attestation I examined this patient and my medical decision-making was reviewed with the Resident Physician Dr. Mccarthy. I agree with the documented findings, disposition and treatment plan as described except to the extent set forth below. Mr. Willett is a 82 year old male with a history of hypertension, hyperlipedemia , and partial right eye blindness. Presented to ED at [facility] yesterday. He noted right side lower extremity weakness , while working outside. He did c/ o numbness and weakness Rt side of body which resolved today. No events over night Gen: A, A O x3 Chest: CTA Heart: S1S2+ RRR Neuro : No focal deficit A/P 1. Acute CVA- Left pontine infract ASA + Plavix Statin PT / OT / Speech eval 2. uncontrolled HTN BP fairly elevated Resumed home meds goal for BP to keep @ 140/90 cont close monitoring Hydralazine PRN
[2017-11-30 05:37] LABS: Calcium 8.3 mg/dL (8.6-10.3); Potassium 3.7 mEq/L (3.5-5.1)
[2017-11-30 07:35] VITALS: BP 159/87
[2017-11-30] MEDS: Aspirin 81 MG TAB.CHEW PO SCH (09:12)
[2017-11-30] MEDS: Losartan/HCTZ 50-12.5 TABLET PO SCH (09:12)
[2017-11-30] MEDS: Metoprolol XL (24 HR) Succ 50 MG TAB.ER.24H PO SCH (09:12)
--- NOTE | 2017-11-30 09:21 | Discharge Summary ---
<Raheel Lopez - Last Filed: 11/30/17 15:38> - NOTES TO OUTPATIENT PROVIDER Notes to Outpatient Provider: Mr. Willett was admitted on 11/27 for a CVA. MRI revealed acute infarct in left esme. Was started on Lipitor 40mg. pt also experienced urinary retention which required Gonzales catheter. Home Flomax was increased to 0.8mg. Date of Encounter: 11/30/17 Time of Encounter: 09:00 - Discharge Diagnosis (1) CVA (cerebral vascular accident) Priority: Primary Status: Acute Assessment and Plan: MRI of brain revealed left esme infarct Pt already on ASA and bp meds at home. resumed Initiated stating therapy with Lipitor 40mg qd Initiated Plavix 75mg qd PT/OT recommended home health visits Qualifiers: CVA mechanism: unspecified Qualified Code(s): I63.9 - Cerebral infarction, unspecified (2) Hypertension Priority: Secondary Status: Acute Assessment and Plan: BP persistently elevated during hospital stay Metoprolol decreased to 50mg due to bradycardia. Ok to resume home dose of 100mg due to increased activity. Continue amlodipine 10mg and Hyzaar 50/12.5 Follow up with PCP Qualifiers: Hypertension type: essential hypertension Qualified Code(s): I10 - Essential (primary) hypertension (3) Fall Priority: Secondary Status: Acute Assessment and Plan: secondary to CVA PT/OT recommends home health visits Qualifiers: Encounter type: subsequent encounter Qualified Code(s): W19.XXXD - Unspecified fall, subsequent encounter (4) JO (acute kidney injury) Priority: Secondary Status: Acute Assessment and Plan: Educated on importance of hydration in daily life and during outside activities Avoid nephrotoxins Follow up with established traveling passenger agent. (5) Hyperlipidemia Priority: Secondary Status: Chronic Assessment and Plan: Lipid panel upon admission revealed elevated triglycerides, LDL, and VLDL, with low HDL. Initiated Lipitor 40mg qd Qualifiers: Hyperlipidemia type: unspecified Qualified Code(s): E78.5 - Hyperlipidemia , unspecified (6) Urinary retention Priority: Secondary Status: Acute Assessment and Plan: Possibly secondary to CVA of esme Increased Flomax to 0.8mg qd Multiple sequential bladder scans requiring subsequent straight caths Gonzales catheter with home health visits Follow up with urology Hospital course: Mr. Willett is a 82 year old male Discharge discussed with: patient, family, nurse, social work - Time Spent with Patient Total time spent providing and/or coordinating discharge services: - Discharge Medications Prescriptions: Atorvastatin [Lipitor] 40 mg PO HS 30 Days #30 tablet Clopidogrel [Plavix] 75 mg PO DAILY 30 Days #30 tablet Home Medications: Amlodipine Besylate 10 mg PO DAILY 11/27/17 [History] Losartan/HCTZ [Hyzaar 50-12.5 Tablet] 25 - 100 mg PO DAILY 11/27/17 [History] Metoprolol Succinate [Toprol Xl] 100 mg PO DAILY 11/27/17 [History] Atorvastatin [Lipitor] 40 mg PO HS 30 Days #30 tablet 11/30/17 [Rx] Clopidogrel [Plavix] 75 mg PO DAILY 30 Days #30 tablet 11/30/17 [Rx] Tamsulosin [Flomax] 0.8 mg PO DAILY #30 11/30/17 [Rx] Allergies/Adverse Reactions: 3 Allergy/AdvReac Type Severity Reaction Status Date / Time No Known Drug Allergies Allergy See Verified 11/27/17 01:22 Comments Date of admission: 11/29/17 10:15 Primary care physician: PCP NONE Consults: 11/27/17 04:07 Consult to Neurology [CONS] Routine Consulting Provider: [facility] Reason for Consult: Ischemic cerebral infarction. Call Completed: No 11/27/17 04:08 Consult to Occupational Therapy [CONS] Routine Comment: Evaluate, develop and implement POC Reason for Consult: stroke, right sided weakness Does patient have active BEDREST order?: No Is patient medically & hemodynamically stable?: Yes Consult to Physical Therapy [CONS] Routine Comment: Evaluate, develop and implement POC Reason for Consult: stroke, right sided weakness Does patient have active BEDREST order?: No Is patient medically & hemodynamically stable?: Yes 11/27/17 05:20 Consult to Speech Therapy [CONS] Routine Comment: Evaluate, develop and implement POC Reason for Consult: difficulty speaking. CVA Call Completed: No 11/27/17 14:31 Consult to Parking Lot Attendant And Cashier [CONS] Routine Reason for SW Consult: PT/OT recommending SNF; Anselmo notified Discharging clinician: Raheel Lopez - Constitutional Vitals: Temp Pulse Resp BP Pulse Ox 97.5 F L 66 17 159/87 95 11/30/17 07:31 11/30/17 07:31 11/30/17 07:31 11/30/17 07:31 11/30/17 07:31 General appearance: Present: A&O X 3, pleasant, no acute distress, answers questions appropriately Exam: Head: normocephalic and atraumatic Eyes: PERRL, EOMI except for lateral left gaze, conjunctiva pink, sclera anicteric Neck: supple, trachea midline Lungs: CTA bilaterally, non-labored breathing. No wheezes, rales, or rhonchi Heart: RRR. +S1 +S2. no murmurs, clicks, or rubs appreciated GI:abdomen soft, non-tender, non-distended. normoactive bowel sounds Extremities: warm, radial pulses palpable and symmetrical. no pedal edema or cyanosis. Neuro: A&Ox3. Partial right eye vision deficit. no speech abnormality or difficulty Skin: warm, dry, intact - Patient Status Disposition: Home Health Service Condition: Fair Functional capacity at discharge: independent ambulation Overall status at discharge: patient is back to baseline - Discharge Instructions Instructions: Atorvastatin (By mouth), Clopidogrel (By mouth), Ischemic Stroke (GEN) Follow Up With: Jorge A Gonzalez MD [Partnered Physician] - 12/15/17 10:45 am Luis Antonio Devlin MD [Non-Partnered Physician] - 12/07/17 1:45 pm () - Diet and Activity Activity: increase activity as tolerated, resume usual activities as tolerated Diet: low fat, low cholesterol, low salt diet - VTE Documentation of Mechanical Device: Intermittent pneumatic compression device <Mega Arroyo - Last Filed: 11/30/17 17:23> Date of Encounter: 11/30/17 - Discharge Diagnosis (1) CVA (cerebral vascular accident) Status: Acute Qualifiers: CVA mechanism: unspecified Qualified Code(s): I63.9 - Cerebral infarction, unspecified (2) Hypertension Status: Acute Qualifiers: Hypertension type: essential hypertension Qualified Code(s): I10 - Essential (primary) hypertension (3) Fall Status: Acute Qualifiers: Encounter type: subsequent encounter Qualified Code(s): W19.XXXD - Unspecified fall, subsequent encounter (4) JO (acute kidney injury) Status: Acute (5) Hyperlipidemia Status: Chronic Qualifiers: Hyperlipidemia type: unspecified Qualified Code(s): E78.5 - Hyperlipidemia , unspecified (6) Urinary retention Status: Acute Hospital course: Mr. Willett is a 82 year old male - Time Spent with Patient Total time spent providing and/or coordinating discharge services: Date of admission: 11/29/17 10:15 Primary care physician: PCP NONE Consults: 11/27/17 04:07 Consult to Neurology [CONS] Routine Consulting Provider: Neurology [facility] Reason for Consult: Ischemic cerebral infarction. Call Completed: No 11/27/17 04:08 Consult to Occupational Therapy [CONS] Routine Comment: Evaluate, develop and implement POC Reason for Consult: stroke, right sided weakness Does patient have active BEDREST order?: No Is patient medically & hemodynamically stable?: Yes Consult to Physical Therapy [CONS] Routine Comment: Evaluate, develop and implement POC Reason for Consult: stroke, right sided weakness Does patient have active BEDREST order?: No Is patient medically & hemodynamically stable?: Yes 11/27/17 14:31 Consult to Parking Lot Attendant And Cashier [CONS] Routine Reason for SW Consult: PT/OT recommending SNF; Anselmo notified - Constitutional Vitals: Temp Pulse Resp BP Pulse Ox 97.5 F L 66 17 159/87 95 11/30/17 07:31 11/30/17 07:31 11/30/17 07:31 11/30/17 07:31 11/30/17 07:31 - Attending Attestation I examined this patient and my medical decision-making was reviewed with the Resident Physician Dr. Lopez. I agree with the documented findings, disposition and treatment plan as described except to the extent set forth below. Mr. Willett is a 82 year old male with a history of hypertension, hyperlipedemia , and partial right eye blindness. Presented to ED at [facility] yesterday. He noted right side lower extremity weakness , while working outside. He did c/ o numbness and weakness Rt side of body which resolved today. No events over night Gen: A, A O x3 Chest: CTA Heart: S1S2+ RRR Neuro : No focal deficit A/P 1. Acute CVA- Left pontine infract ASA + Plavix Statin PT / OT / Speech eval 2. uncontrolled HTN stable with home meds 3. urinary retention Gonzales cath + d/c home with gonzales cath and out pt f/u with urology
[2017-11-30 11:16] LABS: Bilirubin,Urine Negative (Negative); Blood,Urine Moderate (Negative); Clarity,Urine Clear (Clear); Color,Urine Yellow (Yellow); Glucose,Urine (UA) Normal (Normal); Ketones,Urine Negative (Negative); Leukocyte Esterase,Urine Negative (Negative); Nitrite,Urine Negative (Negative); Protein,Urine 100 mg/dL (Neg-Trace); Specific Gravity,Urine 1.015 (1.010-1.025); Urobilinogen,Urine Normal (Normal)
[2017-11-30 11:18] LABS: Bacteria,Urine None Seen per hpf (None-Few); Hyaline Casts,Urine None Seen per lpf (None-Few); Squamous Epithelial Cell,Urine Moderate per lpf (None-Few); WBC,Urine 0-3 per hpf (0-3)
--- NOTE | 2017-11-30 15:35 | Physician Discharge Referral ---
Home Health/Hosp Referral Info Transfer to: Home Health Attending Provider: Dr. Arroyo Provider in Charge Post Discharge: PCP - Diagnosis (1) CVA (cerebral vascular accident) Priority: Primary Status: Acute (2) Hypertension Priority: Secondary Status: Acute (3) Fall Priority: Secondary Status: Acute (4) JO (acute kidney injury) Priority: Secondary Status: Acute (5) Hyperlipidemia Priority: Secondary Status: Chronic (6) Urinary retention Priority: Secondary Status: Acute - Respiratory Orders None Smoking Cessation: Smoking cessation has been advised. For more information, call the [place] Tobacco Quit Line at 3-088-SFQJ-NOW. - Diet/Nutrition Diet/Nutrition Orders: No Added Salt (JAQUAN), Cardiac - Activity Activity Orders: Ambulate - Services Needed Following services are medically necessary services: Home Health Aide, Physical Therapy Home Care Orders: Home Health care for Wooten catheter PT for unsteadiness of feet after turning head - Transfer Medications Prescriptions: Atorvastatin [Lipitor] 40 mg PO HS 30 Days #30 tablet Clopidogrel [Plavix] 75 mg PO DAILY 30 Days #30 tablet Home Medications: Amlodipine Besylate 10 mg PO DAILY 11/27/17 [History] Losartan/HCTZ [Hyzaar 50-12.5 Tablet] 25 - 100 mg PO DAILY 11/27/17 [History] Metoprolol Succinate [Toprol Xl] 100 mg PO DAILY 11/27/17 [History] Atorvastatin [Lipitor] 40 mg PO HS 30 Days #30 tablet 11/30/17 [Rx] Clopidogrel [Plavix] 75 mg PO DAILY 30 Days #30 tablet 11/30/17 [Rx] Tamsulosin [Flomax] 0.8 mg PO DAILY #30 11/30/17 [Rx] Allergies/Adverse Reactions: 3 Allergy/AdvReac Type Severity Reaction Status Date / Time No Known Drug Allergies Allergy See Verified 11/27/17 01:22 Comments Certification: Further, I certify that my clinical findings support that this patient is homebound (i.e. absences from home require considerable and taxing effort and are for medical reasons or religion services or infrequently or short duration when for other reasons) because: Homebound Reason: Patient requires assistance of a person or device to safely leave home Attestation: My signature below is to certify that this patient is under my care and that I, or nurse practitioner, or a physician's account assistant working with me, has a face-to -face encounter with this patient.
== END 2017-11-30 15:58 | disposition home health service (06) | DRG 65 ==
LOC: 2NENU → SUATTDRO 11-29 10:15
PROVIDERS: ADMIT Pediatrics; ATTEND Family Medicine